=== PATIENT | male | born 1975 | race Caucasian/White ===

== ENCOUNTER 2021-11-25 23:21 | Emergency (ER) | payer OTHER ==
[2021-11-25 23:31] VITALS: TEMP 98.7; BMI 30.7
[2021-11-26 00:50] LABS: BASO % 0.7 % (0-2.0); EOS % 1.7 % (0-4.5); HEMATOCRIT 41.6 % (35.4-49); HEMOGLOBIN 14.2 GM/dL (11.7-16.9); LYMPH % 34.8 % (8-40); MEAN CELL VOLUME 82.2 fl (80-96); MEAN PLT VOLUME 6.5 fl (7.5-11.1); MONO % 5.8 % (3.8-10.2); PLATELET COUNT 367 10^3/uL (134-434); RBC 5.06 M/mm3 (4.00-5.60); RDW 14.3 % (11.9-15.9); WHITE BLOOD COUNT 9.6 K/mm3 (4.0-10.0)
[2021-11-26 00:58] LABS: PROTHROMBIN TIME (PATIENT) 11.5 SEC (9.7-13.0)
[2021-11-26 01:00] LABS: ACTIVATED PTT 34.1 SECONDS (25.2-36.5)
[2021-11-26 01:36] VITALS: BP 153/104; PULSE 88; RESP 18
== END 2021-11-26 01:36 | disposition home or self-care (01) ==
LOC: JER 23:21
DX: R04.0 Epistaxis (principal)
CPT/HCPCS: 36415; 85025; 85610; 85730; 99283-25

== ENCOUNTER 2022-08-11 20:32 | Emergency (ER) | payer OTHER ==
[2022-08-11 20:41] VITALS: RESP 18; TEMP 98.3; BMI 30.4
[2022-08-11] MEDS ORDERED: LIDOCAINE 5% TOPICAL PATCH TP ONE (21:19)
[2022-08-11] MEDS ORDERED: KETOROLAC TROMETHAMINE 30 MG/1 ML VIAL IVPUSH ONE (21:19)
[2022-08-11] MEDS ORDERED: diazePAM 5 MG TABLET PO ONE (21:19)
[2022-08-11] MEDS ORDERED: LIDOCAINE 5% TOPICAL PATCH ONE (21:24)
[2022-08-11] MEDS ORDERED: KETOROLAC TROMETHAMINE 30 MG/1 ML VIAL ONE (21:25)
[2022-08-11] MEDS ORDERED: diazePAM 5 MG TABLET ONE (21:25)
[2022-08-11] MEDS ORDERED: LIDOCAINE PATCH REMOVAL MC SCH (22:00)
[2022-08-11 23:19] VITALS: BP 157/102; PULSE 82
== END 2022-08-12 00:16 | disposition home or self-care (01) ==
LOC: JER 20:32
PROC: 3E033NZ Introduction of Analgesics, Hypnotics, Sedatives into Peripheral Vein, Percutaneous Approach (ICD-10-PCS; principal; 2022-08-11)
DX: M54.42 Lumbago with sciatica, left side (principal)
CPT/HCPCS: 72100-TC-FY; 99284-25

== ENCOUNTER 2023-03-07 12:13 | Emergency (ER) | payer OTHER ==
[2023-03-07 12:23] VITALS: BP 131/90; RESP 18; BMI 25.8
[2023-03-07] MEDS ORDERED: IBUPROFEN 600 MG TABLET (FP) PO ONE (12:58)
[2023-03-07 14:09] VITALS: PULSE 98; TEMP 98.7
== END 2023-03-07 14:42 | disposition home or self-care (01) ==
LOC: JERFT 12:13
DX: R05.9 Cough, unspecified (principal); J11.1 Influenza due to unidentified influenza virus with other respiratory manifestations; Z20.822 Contact with and (suspected) exposure to COVID-19
CPT/HCPCS: 0241U-QW; 99283-25

== ENCOUNTER 2023-04-15 06:50 | Emergency (ER) | payer OTHER ==
[2023-04-15 06:59] VITALS: BP 157/106; PULSE 102; RESP 20; TEMP 98; BMI 26.6
[2023-04-15] MEDS ORDERED: IBUPROFEN 400 MG TABLET (FP) PO ONE (08:44)
[2023-04-15] MEDS: IBUPROFEN 600 MG TABLET (FP) PO ONE (08:53)
[2023-04-15 09:05] LABS: BASO % 0.6 % (0-2.0); EOS % 1.6 % (0-4.5); HEMATOCRIT 44.6 % (35.4-49); HEMOGLOBIN 14.5 GM/dL (11.7-16.9); LYMPH % 25.8 % (8-40); MCH 27.1 pg (25.7-33.7); MCHC 32.5 g/dl (32.0-35.9); MEAN CELL VOLUME 83.5 fl (80-96); MEAN PLT VOLUME 6.5 fl (7.5-11.1); MONO % 5.4 % (3.8-10.2); NEUT % 66.6 % (42.8-82.8); PLATELET COUNT 421 10^3/uL (134-434); RBC 5.34 M/mm3 (4.00-5.60); RDW 14.4 % (11.9-15.9); WHITE BLOOD COUNT 12.6 K/mm3 (4.0-10.0)
[2023-04-15 09:27] LABS: POTASSIUM 3.4 mmol/L (3.5-5.1)
[2023-04-15 09:28] LABS: CALCIUM 9.1 mg/dL (8.5-10.1)
[2023-04-15 09:29] LABS: ALBUMIN 3.8 g/dl (3.4-5.0); BLOOD UREA NITROGEN 15.3 mg/dL (7-18)
[2023-04-15 09:32] LABS: CREATININE 0.7 mg/dL (0.55-1.3)
[2023-04-15 09:33] LABS: BILIRUBIN,TOTAL 0.4 mg/dL (0.2-1)
== END 2023-04-15 10:25 | disposition home or self-care (01) ==
LOC: JERFT 06:50 → JER 06:50 → JERFT 10:25
DX: H92.02 Otalgia, left ear (principal); H73.92 Unspecified disorder of tympanic membrane, left ear; H66.92 Otitis media, unspecified, left ear
CPT/HCPCS: 36415; 70487-TC; 80053; 85025; 99284-25; Q9967

== ENCOUNTER 2024-01-16 10:19 | Emergency (ER) | payer OTHER ==
[2024-01-16 10:31] VITALS: BP 173/115; PULSE 87; RESP 16; TEMP 98.3; BMI 25.8
== END 2024-01-16 12:18 | disposition home or self-care (01) ==
LOC: JER 10:19
DX: I10 Essential (primary) hypertension (principal)
CPT/HCPCS: 93005; 93010; 99283-25